=== PATIENT | male | born 1970 | race Caucasian/White ===

== ENCOUNTER 2024-11-09 09:32 | Outpatient (AMB) | payer OTHER, SELFPAY ==
[2024-11-09 09:36] VITALS: BP 132/88; PULSE 85; O2SAT 97; BMI 26.3
--- NOTE | 2024-11-09 09:36 | HO.NEPHOV_ITS ---
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 He is currently on lisinopril 15 mg and amlodipine 2.5 , and his blood pressure is generally well-controlled at home, with readings typically in the low 120s over low 80s. He experiences occasional lightheadedness upon standing but denies any significant cardiovascular symptoms such as chest pain or dyspnea. The patient underwent a renal ultrasound, which revealed a small angiomyolipoma, Underwent MRI few days agao- results pending. The patient has a history of elevated bilirubin levels, which have fluctuated over time. He reports that abstaining from alcohol resulted in a decrease in bilirubin levels, suggesting an alcohol-related etiology. The patient also has elevated creatinine levels, with a recent measurement of 1.36 mg/dL, indicating reduced kidney function at 62% [facility] Medical History (Updated 11/09/24 @ 10:02 by Xavier Greene MD) Prostate cancer screening Hypertension Hyperlipidemia Elevated PSA Chronic rhinitis Abnormal colonoscopy (~01/2021) Surgical History History of vasectomy Family History (Updated 11/09/24 @ 09:38 by ROBSON Carbajal) Mother Hypertension Review of Systems Const Denies fever(s) and Denies weight loss Card Denies chest pain Resp Denies cough and Denies hemoptysis GI Denies abdominal pain, Denies diarrhea and Denies nausea Musc Denies back pain Neuro Denies focal weakness Physical Exam Vital Signs: Last Vital Signs Pulse 85 11/09/24 09:36 BP 132/88 11/09/24 09:36 Pulse Ox 97 11/09/24 09:36 Oxygen Delivery Method Room Air 11/09/24 09:36 BMI result Body Mass Index 26.3 Comfortable Neck supple no JVD. Lungs entry equal no rales. Heart S1-S2 heard no gallop or rub. Abdomen soft nontender. Neuro alert awake oriented. No asterixis. Extremities no edema. 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 continue with the current antihypertensive regimen of lisinopril and amlodipine, as his blood pressure is generally well-controlled. May need a 24 hr ABPM A 24-hour urine collection will be conducted to assess kidney function and proteinuria, providing further insight into the elevated creatinine levels. The renal ultrasound finding of an angiomyolipoma is considered benign, and no intervention is required at this time. Shall follow MRI results The patient is advised to maintain adequate hydration and limit alcohol intake, Low salt diet Orders: Orders Protein, 24 Hr Urine Group Today N18.9 - Chronic kidney disease, unspecified Creatinine Clearance Urine 24U Today N18.9 - Chronic kidney disease, unspecified Basic Metabolic Panel Today N18.9 - Chronic kidney disease, unspecified Coding Level of Care Code New Pt Level 4 (18975) Diagnoses Hypertension I10 CKD (chronic kidney disease) N18.9
--- OUTSIDE RECORDS SUMMARY | 2024-11-09 10:38 | XMS_ITS | Encounter Summary ---
Author Organization [facility] Address [address] [place] [address] Phone Care Team Providers Care Outpatient Clerk Name Role Phone Jose Carr MD Primary Care Provider [phone] Reason for Visit * Reason Comments Med Refill Encounter Details Date Type Department Care Team (Late st Contact Info) Description 02/03/2021 Refill [facility] [address] [place] [address] Jose Carr MD [address] [facility] [address] [place] [phone] Social History Tobacco Use Types Packs/Day Years Used Date Smoking Tobacco: Never Alcohol Use Standard Drinks/Week Comments Yes 0 (1 standard drink = 0.6 oz pure alcohol) Alcoholic Drinks/day: Occasional social drink Sex and Gender Information Value Date Recorded Sex Assigned at Not on file Legal Sex Male 4:54 PM EST Gender Identity Not on file Sexual Orientation Not on file documented as of this encounter Plan of Treatment Not on file documented as of this encounter Visit Diagnoses Not on filedocumented in this encounter Care Teams Outpatient Clerk Relationship Specialty Start Date End Date Jose Carr MD PCP - General Nephrology 10/09/20 documented as of this encounter
== END 2024-11-09 10:01 | disposition home or self-care (01) ==
LOC: HO.HKAS 09:33
PROVIDERS: PCP Family Medicine; Referring Provider Family Medicine; Visit Provider Internal Medicine Hypertension Specialist
DX: I12.9 Hypertensive chronic kidney disease with stage 1 through stage 4 chronic kidney disease, or unspecified chronic kidney disease (principal); N18.9 Chronic kidney disease, unspecified
CPT/HCPCS: 99204

== ENCOUNTER 2024-11-28 08:22 | Outpatient (REF) | payer OTHER, SELFPAY ==
--- OUTSIDE RECORDS SUMMARY | 2024-11-28 08:27 | XMS_ITS | Encounter Summary ---
Author Organization [facility] Address [address] [place] [address] Phone Care Team Providers Care Licensed Investment Sales Assistant Name Role Phone Jose Carr MD Primary Care Provider [phone] Reason for Visit * Reason Comments Med Refill Encounter Details Date Type Department Care Team (Late st Contact Info) Description 02/03/2021 Refill [facility] [address] [place] [address] Jose Carr MD [address] [facility] [address] [place] [phone] Social History Tobacco Use Types Packs/Day Years [...] on filedocumented in this encounter Care Teams Licensed Investment Sales Assistant Relationship Specialty Start Date End Date Jose Carr MD PCP - General Nephrology 10/09/20 documented as of this encounter
[2024-11-28 14:09] LABS: Total Volume 24 Hour Urine 1350 mL
[2024-11-28 14:47] LABS: Anion Gap 12 (12-20); Blood Urea Nitrogen 13 mg/dL (9-16); Calcium 9.5 mg/dL (8.4-10.2); Carbon Dioxide 27 mmol/L (22-29); Chloride 105 mmol/L (96-108); Estimated Glomerular Filt Rate > 60; Potassium 3.8 mmol/L (3.3-5.1); Sodium 140 mmol/L (135-145)
[2024-11-28 14:54] LABS: Creatinine, mg/dL 106.86
[2024-11-28 17:49] LABS: Creatinine (CrCl) 1.18 mg/dL (0.5-1.4)
== END 2024-11-28 08:23 | disposition home or self-care (01) ==
LOC: HO.HKASLDS 08:22
PROVIDERS: Visit Provider Internal Medicine Hypertension Specialist
DX: N18.9 Chronic kidney disease, unspecified (principal)
CPT/HCPCS: 36415; 80048; 82575; 84156

== ENCOUNTER 2024-12-21 08:19 | Outpatient (AMB) | payer OTHER, SELFPAY ==
--- OUTSIDE RECORDS SUMMARY | 2024-12-21 08:22 | XMS_ITS | Clinical Summary ---
Author Organization [facility] Facility Address [address] [address] Care Team Providers Care Host Hostess Name Role Phone Jose Carr MD Primary Care Provider [phone] Medications lisinopril (PRINIVIL,ZESTRI L) 2.5 MG tablet TAKE 1 TABLET BY MOUTH EVERY DAY 90 tablet 3 10/05/2020 Active atorvastatin (LIPITOR) 20 MG tablet TAKE 1 TABLET BY MOUTH EVERY DAY 90 tablet 12/30/2020 Active amLODIPine (NORVASC) 10 MG tablet TAKE 1 TABLET (10 MG TOTAL) BY MOUTH 1 (ONE) TIME EACH DAY 30 tablet 1 02/03/2021 Active Family History Medical History Relation Comments Hypertension Father Hypertension Mother Hypertension Sibling Relation Status Comments Father Alive Mother Alive Sibling Social History Tobacco Use Types Packs/Day Years Used Date Smoking Tobacco: Never Alcohol Use Standard Drinks/Week Comments Yes 0 (1 standard drink = 0.6 oz pure alcohol) Alcoholic Drinks/day: Occasional social drink Sex and Gender Information Value Date Recorded Sex Assigned at Not on file Legal Sex Male 4:54 PM EST Gender Identity Not on file Sexual Orientation Not on file Last Filed Vital Signs Vital Sign Reading Time Taken Comments Blood Pressure 120/78 04/05/2019 12:00 PM EST Pulse 86 04/05/2019 12:00 PM EST Temperature - - Respiratory Rate - - Oxygen Saturation 97% 04/05/2019 12:00 PM EST Inhaled Oxygen Concentration - - Weight 66.7 kg (147 lb) 04/05/2019 12:00 PM EST Height 162.6 cm (5' 4 ) 04/05/2019 12:00 PM EST Body Mass Index 25.23 04/05/2019 12:00 PM EST Plan of Treatment Health Maintenance Due Date Last Done Comments Hepatitis B Vaccine (1 + 3-dose series) 05/04 Pneumococcal Vaccine: 50+ Years (1 of 2 - PCV) 989 Colorectal Cancer Screening: Annual FOBT 2019 Colorectal Cancer Screening: Colonoscopy 2019 Colorectal Cancer Screening: Sigmoidoscopy 2019 Influenza Vaccine (#1) 2025 Care Teams Host Hostess Relationship Specialty Start Date End Date Jose Carr MD PCP - General Nephrology 10/09/20
--- OUTSIDE RECORDS SUMMARY | 2024-12-21 08:22 | XMS_ITS | Clinical Summary ---
Author Organization [facility] Address [address] [address] Phone Care Team Providers Care Gasket Maker Name Role Phone Philip Valenzuela DO Primary Care Provider Social History Tobacco Use Types Packs/Day Years Used Date Smoking Tobacco: Never Assessed Education Answer Date Recorded Are you interested in more education? Not on linda e 09/12/2022 Are you concerned about learning? Not on file 09/12/2022 No 09/12/2022 No 09/12/2022 Digital Access Answer Date Recorded No 10/11/2022 No 10/11/2022 No 10/11/2022 Reliable internet access at home? Not on file 10/11/2022 Device with a working camera? Not on file Sex and Gender Information Value Date Recorded Sex Assigned at Not on file Legal Sex Male 11:16 AM EDT Gender Identity Not on file Sexual Orientation Not on file Last Filed Vital Signs Vital Sign Reading Time Taken Comments Blood Pressure 110/76 11/19/2018 1:35 PM EDT Pulse - - Temperature - - Respiratory Rate - - Oxygen Saturation 98% 11/19/2018 1:35 PM EDT Inhaled Oxygen Concentration - - Weight - - Height - - Body Mass Index - - Plan of Treatment Health Maintenance Due Date Last Done Comments Adult Td,Tdap Booster 1970 LIPID PANEL 1970 DEPRESSION SCREENING 1982 SMOKING Hx and SMOKELESS TOBACCO SCREENING 1983 HEPATITIS C SCREENING 1988 HIV ONE-TIME SCREENING (18-6 5 YEARS) 1988 COLOGUARD 2015 COLONOSCOPY 2015 COLORECTAL CANCER SCREENING 2015 FIT TEST 2015 FOBT 2015 SIGMOIDOSCOPY 2015 VIRTUAL COLONOSCOPY 2015 PNEUMOCOCCAL VACCINES (50+ years) (1 of 1 - PCV) 2020 ZOSTER VACCINES (1 of 2) 2020 COVID-19 VACCINE (3 - 2023-2 5 season) 2024 10/03/2020, 09/11/2020 HEPATITIS A VACCINES Aged Out No long er eligible based on patient's age to complete this topic HIB VACCINES Aged Out No longer eligi ble based on patient's age to complete this topic MENINGOCOCCAL VACCINES (ACWY) Aged Out No longer eligible based on patient's age to complete this topic MENINGOCOCCAL VACCINES (B) Aged Out N o longer eligible based on patient's age to complete this topic Medical Devices Not on file Insurance [facility] PPO EPO [facility] PPO EPO Care Teams Gasket Maker Relationship Specialty Start Date End Date Philip Valenzuela DO [address] [facility] [place] [address] PCP - General Family Medicine 10/29/18 Additional Source Comments The information contained in this document represents components of the legal health record. It is not the complete legal health record.[facility]
[2024-12-21 08:26] VITALS: BP 121/86; PULSE 69; O2SAT 99; BMI 26.4
--- NOTE | 2024-12-21 08:26 | HO.NEPHOV ---
Vital Signs 12/21/24 08:26 Height 5 ft 4 in Weight 154 lb BMI 26.4 BP 121/86 Blood Pressure Location Lt brachial Position Sitting Pulse 69 Pulse Source Pulse Oximeter Pulse Oximetry (%) 99 Oxygen Delivery Method Room Air Intake Visit Reasons: 6 weeks/ Conf Carrot Buncher Required: No Accompanied by: Self / Same As Patient Allergies No Known Allergies Allergy (Verified 12/21/24 08:29) Medication List - Last Reconciled 12/21/24 by Xavier Greene MD amlodipine 2.5 mg PO DAILY atorvastatin 20 mg PO DAILY cetirizine 10 mg PO BEDTIME lisinopril 15 mg PO DAILY HPI Comments Details: 54-year-old male referred for CKD with a Creatinine of 1.36 mg /dL and with concerns regarding a renal ultrasound finding The patient reports a history of essential hypertension, which has been present for most of his life. He is currently on lisinopril 15 mg and amlodipine 2.5 , and his blood pressure is generally well-controlled at home, with readings typically in the low 120s over low 80s. He experiences occasional lightheadedness upon standing but denies any significant cardiovascular symptoms such as chest pain or dyspnea. The patient underwent a renal ultrasound, which revealed a small angiomyolipoma, Underwent MRI few days agao- results pending. The patient has a history of elevated bilirubin levels, which have fluctuated over time. He reports that abstaining from alcohol resulted in a decrease in bilirubin levels, suggesting an alcohol-related etiology. The patient also has elevated creatinine levels, with a recent measurement of 1.36 mg/dL, indicating reduced kidney function at 62% 12/21/24 The patient is a 54-year-old male presenting with hypertension and chronic kidney disease. Hypertension management includes amlodipine and lisinopril, with home blood pressure readings averaging 112/82 mmHg, though dizziness is occasionally experienced. In-office blood pressure was recorded at 121/86 mmHg, with a target diastolic pressure below 80 mmHg. Chronic kidney disease is monitored through creatinine levels, which improved from 1.3 mg/dL to 1.18 mg/dL, deemed normal for the patient's age. Urine collection results were satisfactory, indicating Cr cL 85 ml/mt, appropriate for the patient's age. The patient has a history of elevated bilirubin, which decreased following reduced alcohol consumption. Hyperlipidemia is managed with atorvastatin, with previous cholesterol levels noted to be elevated. [facility] Medical History (Updated 11/09/24 @ 10:02 by Xavier Greene MD) Prostate cancer screening Hypertension Hyperlipidemia Elevated PSA Chronic rhinitis Abnormal colonoscopy (~01/2021) Surgical History History of vasectomy Family History Mother Hypertension Physical Exam Vital Signs: Last Vital Signs Pulse 69 12/21/24 08:26 BP 121/86 12/21/24 08:26 Pulse Ox 99 12/21/24 08:26 Oxygen Delivery Method Room Air 12/21/24 08:26 BMI result Body Mass Index 26.4 Comfortable Neck supple no JVD. Lungs entry equal no rales. Heart S1-S2 heard no gallop or rub. Abdomen soft nontender. Neuro alert awake oriented. No asterixis. Extremities no edema. 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 continue with the current antihypertensive regimen of lisinopril and amlodipine, as his blood pressure is generally well-controlled. A 24-hour urine collection -Cr cL 85ml/mt with serum cr of 1.18 The renal ultrasound finding of an angiomyolipoma is considered benign, and no intervention is required at this time. Shall follow MRI results - requested from [facility] The patient is advised to maintain adequate hydration and limit alcohol intake, Low salt diet Check lipid panel an Bilirubin Follow up with and PCP Orders: Orders Basic Metabolic Panel 1 Year I10 - Essential (primary) hypertension Lipid Panel 1 Week I10 - Essential (primary) hypertension, N18.9 - Chronic kidney disease, unspecified Comprehensive Met. Panel 1 Week I10 - Essential (primary) hypertension, N18.9 - Chronic kidney disease, unspecified Coding Level of Care Code Est Pt Level 4 (00915) Diagnoses Hypertension I10 CKD (chronic kidney disease) N18.9
== END 2024-12-21 08:49 | disposition home or self-care (01) ==
LOC: HO.HKAS 08:19
PROVIDERS: PCP Family Medicine; Visit Provider Internal Medicine Hypertension Specialist
DX: I12.9 Hypertensive chronic kidney disease with stage 1 through stage 4 chronic kidney disease, or unspecified chronic kidney disease (principal); N18.9 Chronic kidney disease, unspecified
CPT/HCPCS: 99214

== ENCOUNTER 2025-01-23 08:49 | Outpatient (REF) | payer OTHER, SELFPAY ==
--- OUTSIDE RECORDS SUMMARY | 2025-01-23 09:50 | XMS_ITS | Encounter Summary ---
Author Organization [facility] Address [address] [place] [address] Phone Care Team Providers Care Assistant Athletic Trainer Name Role Phone Jose Carr MD Primary Care Provider [phone] Reason for Visit * Reason Comments Med Refill Encounter Details Date Type Department Care Team (Late st Contact Info) Description 12/29/2020 Refill [facility] [address] [place] [address] Jose Carr MD [address] [facility] [address] [place] [phone] Social History Tobacco Use Types Packs/Day Years [...] on filedocumented in this encounter Care Teams Assistant Athletic Trainer Relationship Specialty Start Date End Date Jose Carr MD PCP - General Nephrology 10/09/20 documented as of this encounter
--- OUTSIDE RECORDS SUMMARY | 2025-01-23 09:50 | XMS_ITS | Encounter Summary ---
Author Organization [facility] Address [address] [place] [address] Phone Care Team Providers Care Bunch Maker Name Role Phone Jose Carr MD Primary Care Provider [phone] Reason for Visit * Reason Comments Med Refill Encounter Details Date Type Department Care Team (Late st Contact Info) Description 02/28/2021 Refill [facility] [address] [place] [address] Jose Carr MD [address] [facility] [address] [place] [phone] Social History Tobacco Use Types Packs/Day Years [...] on file documented as of this encounter Miscellaneous Notes * Telephone Encounter - Jose Carr MD - 02/28/2021 9:13 AM EDT He no longer comes here. He needs pcp dr taylor to fill this documented in this encounter Plan of Treatment Not on file documented as of this encounter Visit Diagnoses Not on filedocumented in this encounter Care Teams Bunch Maker Relationship Specialty Start Date End Date Jose Carr MD PCP - General Nephrology 10/09/20 documented as of this encounter
--- OUTSIDE RECORDS SUMMARY | 2025-01-23 09:50 | XMS_ITS | Encounter Summary ---
Author Organization [facility] Address [address] [place] [address] Phone Care Team Providers Care Qualification Engineer Name Role Phone Jose Carr MD Primary Care Provider Reason for Visit * Reason Comments Med Refill Encounter Details Date Type Department Care Team (Late st Contact Info) Description 04/07/2021 Refill [facility] [address] [place] [address] Jose Carr MD [address] [facility] [address] [place] [phone] Social History Tobacco Use Types Packs/Day Years [...] on filedocumented in this encounter Care Teams Qualification Engineer Relationship Specialty Start Date End Date Jose Carr MD PCP - General Nephrology 10/09/20 documented as of this encounter
--- OUTSIDE RECORDS SUMMARY | 2025-01-23 09:50 | XMS_ITS | Clinical Summary ---
Author Organization [facility] Facility Address [address] [address] Care Team Providers Care Contemporary Or Modern Dancer Name Role Phone Jose Carr MD Primary Care Provider [phone] Medications lisinopril (PRINIVIL,ZESTRI L) 2.5 MG tablet [...] 2019 Influenza Vaccine (#1) 2025 Care Teams Contemporary Or Modern Dancer Relationship Specialty Start Date End Date Jose Carr MD PCP - General Nephrology 10/09/20
--- OUTSIDE RECORDS SUMMARY | 2025-01-23 09:50 | XMS_ITS | Encounter Summary ---
Author Organization [facility] Address [address] [place] [address] Care Team Providers Care Direct Marketing Manager Name Role Phone Philip Valenzuela DO Primary Care Provider [phone] Encounter Details Date Type Department Care Team (Late st Contact Info) Description 01/19/2025 Lab Requisition [facility] - Main Lab [address] [place] [phone] Robert Obregon PA [address] [facility] [address] [place] [address] Benign prostatic hyperplasia with lower urinary tract symptoms Social History Tobacco Use Types Packs/Day Years Used Date Smoking Tobacco: Never Smokeless Tobacco: Never Sex and Gender Information Value Date Recorded Sex Assigned at Not on file Legal Sex Male 9:59 PM EST Gender Identity Not on file Sexual Orientation Not on file documented as of this encounter Plan of Treatment Not on file documented as of this encounter Procedures Procedure Name Priority Date/Time Associated Diagnosis Comments PROSTATE SPECIFIC ANTIGEN DIAGNOSTIC Routine 01/19/2025 10:30 AM EDT Benign prostatic hyperplasia with lower urinary tract symptoms documented in this encounter Results * Prostate specific antigen diagnostic (01/19/2025 10:30 AM EDT) PSA 2.86 0.00 - 4.00 ng/mL LAB CHEMISTRY METHOD 01/19/2025 1:45 PM EDT [facility] Blood Venous blood specimen / Unknown 01/19/2025 10:30 AM EDT 01/19/2025 1:00 PM EDT Narrative [facility] - 01/19/2025 1:45 PM EDT The Siemens Advia Centaur Chemiluminescent Immunoassay is used. Results obtained with different assay methods or kits cannot be used interchangeably. Results cannot be interpreted as absolute evidence of the presence or absence of malignant disease. us Robert TIMMONS LAB BLOOD ORDERABLES Final Resul t [facility] [address] [place] [address], documented in this encounter Visit Diagnoses Diagnosis Benign prostatic hyperplasia with lower urinary tract symptoms documented in this encounter Care Teams Direct Marketing Manager Relationship Specialty Start Date End Date Philip Valenzuela DO [address] [place] [address] PCP - General Family Medicine 01/19/25 documented as of this encounter
--- OUTSIDE RECORDS SUMMARY | 2025-01-23 09:50 | XMS_ITS | Encounter Summary ---
Author Organization [facility] Address [address] [place] [address] Phone Care Team Providers Care Unemployment Examiner Name Role Phone Jose Carr MD Primary Care Provider [phone] Reason for Visit * Reason Comments Med Refill Encounter Details Date Type Department Care Team (Late st Contact Info) Description 03/29/2021 Refill [facility] [address] [place] [address] Jose Carr MD [address] [facility] [address] [place] [phone] Social History Tobacco Use Types Packs/Day Years [...] on filedocumented in this encounter Care Teams Unemployment Examiner Relationship Specialty Start Date End Date Jose Carr MD PCP - General Nephrology 10/09/20 documented as of this encounter
--- OUTSIDE RECORDS SUMMARY | 2025-01-23 09:50 | XMS_ITS | Clinical Summary ---
Author Organization [facility] Address [address] [address] Phone Care Team Providers Care Date Puller Name Role Phone Philip Valenzuela DO Primary [...] 2020 ZOSTER VACCINES (1 of 2) 2020 INFLUENZA VACCINE (#1) 2024 COVID-19 VACCINE (3 - 2024-2 6 season) 2025 10/03/2020, 09/11/2020 HEPATITIS A VACCINES Aged Out [...] topic Medical Devices Not on file Insurance [facility] PPO EPO [facility] PPO EPO [facility] PPO EPO Member Subscriber Plan / Payer ( fective 2018-Present) Name:Alhaji Suarez Relation to Subscriber:Self Name:Alhaji Suarez Payer ID:[id number] (NAIC) Type:PPO Address: [address] [place], [place] E[place] Care Teams Date Puller Relationship Specialty Start Date End Date Philip Valenzuela DO [address] [facility] [place] [address] PCP - General Family Medicine 10/29/18 Additional Source Comments The information contained in this document represents components of the legal health record. It is not the complete legal health record.[facility]
--- OUTSIDE RECORDS SUMMARY | 2025-01-23 09:50 | XMS_ITS | Encounter Summary ---
Author Organization [facility] Address [address] [place] [address] Phone Care Team Providers Care Ground Water Pump Installer Name Role Phone Jose Carr MD Primary Care Provider [phone] Reason for Visit * Reason Onset Date Comments Med Refill Med Refill 10/09/2020 Encounter Details Date Type Department Care Team (Late st Contact Info) Description 10/05/2020 Refill [facility] [address] [place] [address] Jose Carr MD [address] [facility] [address] [place] [id number] Social History Tobacco Use Types Packs/Day Years [...] on filedocumented in this encounter Care Teams Ground Water Pump Installer Relationship Specialty Start Date End Date Jose Carr MD PCP - General Nephrology 10/09/20 documented as of this encounter
--- OUTSIDE RECORDS SUMMARY | 2025-01-23 09:50 | XMS_ITS | Clinical Summary ---
Author Organization [facility] Address [address] [place] [phone] Phone Care Team Providers Care Thaw Shed Heater Tender Name Role Phone Philip Valenzuela DO Primary Care Provider [phone] Encounters Date Type Department Care Team Description 01/19/2025 Lab Requisition [facility] - Main Lab [address] [facility] [place] [place] [phone] Robert Obregon PA Benign prostatic hyperplasia with lower urinary tract symptoms from Last 3 Months Surgical History Surgery Date Site/Laterality Comments EYE SURGERY PROCEDURE: HISTORICAL EYE SURGERY VASECTOMY PROCEDURE: HISTORICAL VASECTOMY Medical History Medical History Date Comments History of angioedema 08/04/2018 DX:History of angioedema Hypertension 08/04/2018 DX:Hypertension Recurrent urticaria 08/04/2018 DX:Recurrent urticaria Family History Medical History Relation Name Comments Hypertension Father Relation Name Status Comments Father Social History Tobacco Use Types Packs/Day Years Used Date Smoking Tobacco: Never Smokeless Tobacco: Never Sex and Gender Information Value Date Recorded Sex Assigned at Not on file Legal Sex Male 9:59 PM EST Gender Identity Not on file Sexual Orientation Not on file Obstetrics History Plan of Treatment Health Maintenance Due Date Last Done Comments DTaP,Tdap,and Td Vaccines (1 - Tdap) 1989 Hepatitis B Vaccines (1 of 3 - 19+ 3-dose series) 1989 Pneumococcal Vaccine: 50+ Ye ars (1 of 1 - PCV) 2020 Zoster Vaccines (1 of 2) 2020 Depression Screening 05/18/2024 COVID-19 Vaccine (1 - 2023-2 5 season) 2025 Influenza Vaccine (#1) 2025 Cholesterol Screening (Lipid Panel) 01/19/2025 Colorectal Cancer Screening: Colonoscopy 01/19/2025 HIV Screening 01/19/2025 Hepatitis C Screening 01/19/2025 Hypertension/CHF/CAD Annual BMP Blood Test 01/19/2025 Social Influencers of Health Screening 01/19/2025 HIB Vaccines Aged Out No longer eligi ble based on patient's age to complete this topic HPV Vaccines Aged Out No longer eligi ble based on patient's age to complete this topic Hepatitis A Vaccines Aged Out No long er eligible based on patient's age to complete this topic IPV Vaccines Aged Out No longer eligi ble based on patient's age to complete this topic MMR Vaccines Aged Out No longer eligi ble based on patient's age to complete this topic Meningococcal ACWY Vaccine Aged Out N o longer eligible based on patient's age to complete this topic Meningococcal B Vaccine Aged Out No l onger eligible based on patient's age to complete this topic RSV Immunization Patients Un bessy 20 months Aged Out No longer eligible b ased on patient's age to complete this topic Varicella Vaccines Aged Out No longer eligible based on patient's age to complete this topic Procedures Procedure Name Priority Date/Time Associated Diagnosis Comments PROSTATE SPECIFIC ANTIGEN DIAGNOSTIC Routine 01/19/2025 10:30 AM EDT Benign prostatic hyperplasia with lower urinary tract symptoms from Last 3 Months Results * Prostate specific antigen diagnostic (01/19/2025 10:30 AM EDT) PSA 2.86 0.00 - 4.00 ng/mL LAB CHEMISTRY METHOD 01/19/2025 1:45 PM EDT [facility] Blood Venous blood specimen / Unknown 01/19/2025 10:30 AM EDT 01/19/2025 1:00 PM EDT Narrative [facility] - 01/19/2025 1:45 PM EDT The Siemens Advia Centaur Chemiluminescent Immunoassay is used. Results obtained with different assay methods or kits cannot be used interchangeably. Results cannot be interpreted as absolute evidence of the presence or absence of malignant disease. us Robert TIMMONS LAB BLOOD ORDERABLES Final Resul t ELIAZAR WATK[facility] [place] ([facility] [address] [place] [address], from Last 3 Months Insurance [employer] Care Teams Thaw Shed Heater Tender Relationship Specialty Start Date End Date Philip Valenzuela DO [address] [place] [address] PCP - General Family Medicine 01/19/25
--- OUTSIDE RECORDS SUMMARY | 2025-01-23 09:50 | XMS_ITS | Encounter Summary ---
Author Organization [facility] Address [address] [place] [address] Phone Care Team Providers Care Low Vision Therapist Name Role Phone Jose Carr MD Primary Care Provider [phone] Reason for Visit * Reason Comments Med Refill Encounter Details Date Type Department Care Team (Late st Contact Info) Description 02/03/2021 Refill [facility] [address] [place] [address] Jose Carr MD [address] [facility] [address] [place] [phone] Social History Tobacco Use Types Packs/Day Years [...] on filedocumented in this encounter Care Teams Low Vision Therapist Relationship Specialty Start Date End Date Jose Carr MD PCP - General Nephrology 10/09/20 documented as of this encounter
[2025-01-23 14:40] LABS: Alanine Aminotransferase 69 U/L (0-40); Albumin Level 4.7 g/dL (3.5-5.0); Alkaline Phosphatase 34 U/L (39-117); Anion Gap 11 (12-20); Aspartate Amino Transferase 45 U/L (5-37); Blood Urea Nitrogen 12 mg/dL (9-16); Calcium 9.5 mg/dL (8.4-10.2); Carbon Dioxide 28 mmol/L (22-29); Chloride 106 mmol/L (96-108); Cholesterol 150 mg/dL (<200); Estimated Glomerular Filt Rate > 60; HDL Cholesterol 55 mg/dL (>40); Potassium 4.1 mmol/L (3.3-5.1); Sodium 141 mmol/L (135-145); Total Protein 7.2 g/dL (6.5-8.0); Triglycerides 88 mg/dL (<150)
== END 2025-01-23 08:50 | disposition home or self-care (01) ==
LOC: HO.HKASLDS 08:49
PROVIDERS: Visit Provider Internal Medicine Hypertension Specialist
DX: I12.9 Hypertensive chronic kidney disease with stage 1 through stage 4 chronic kidney disease, or unspecified chronic kidney disease (principal); N18.9 Chronic kidney disease, unspecified
CPT/HCPCS: 36415; 80053; 80061